=== PATIENT | female | born 1975 | race Caucasian/White ===

== ENCOUNTER → 2016-12-29 | Outpatient (CLI) | payer OTHER ==
[~2016-12-29] MED LIST: AUGMENTIN PO; CALC1CAP24 PO; CLB100 PO; CYAN100020 PO; DESOTAB2 PO; MIRA1TAB3 PO; MOME50SP5; MULT-506 PO; MULT-580 PO; OMEGCAP2 PO; PANT40TA PO; VTME100 PEG
[2016-12-29 17:29] LABS: BASO % 0.4 %; BASO ABS # 0.03 K/uL (0-0.2); COMPLETE YES; EOS % 2.2 %; IG% 0.1 %; LYMPH % 31.3 %; LYMPH ABS # 2.62 K/uL (1.2-3.4); MEAN CELL VOLUME 93.2 fL (80-100); MEAN CORPUSCULAR HEMOGLOBIN 31.7 pg (25-34); MEAN PLATELET VOLUME 10.5 fL (7.4-10.4); MONO % 6.9 %; NEUT % 59.1 %; PLATELET COUNT 304 K/uL (130-400); RED BLOOD COUNT 4.29 M/uL (4.2-5.4); WHITE BLOOD COUNT 8.37 K/uL (4.8-10.8)
[2016-12-29 17:50] LABS: ALT/SGPT 21 U/L (12-78); AST/SGOT 15 U/L (15-37); BLOOD UREA NITROGEN 11 mg/dl (7-18); BUN/CREATININE RATIO 15.4 (10-20); CALCIUM 8.8 mg/dl (8.5-10.1); CARBON DIOXIDE 26 mmol/L (21-32); CHLORIDE 108 mmol/L (98-107); CREATININE 0.73 mg/dl (0.60-1.20); GLUCOSE 84 mg/dl (70-99); SODIUM 141 mmol/L (136-145)
[2016-12-29 18:01] LABS: ALB/GLOB RATIO 0.8 (0.9-2); ALKALINE PHOSPHATASE 81 U/L (45-117); C-REACTIVE PROTEIN 0.82 mg/dl (0-0.29); RHEUMATOID FACTOR < 10.0 U/mL (0-15)
[2016-12-29 18:17] LABS: LYME DISEASE AB IGM NEG (NEG)
[2016-12-29 18:19] LABS: LYME DISEASE AB IGG NEG (NEG)
== END | disposition home or self-care (01) ==
LOC: C.LABBFT 09:35
PROVIDERS: ATTEND Physician Assistant Medical
DX: R53.83 Other fatigue (principal); M25.50 Pain in unspecified joint

== ENCOUNTER → 2017-01-05 | Outpatient (CLI) | payer OTHER | END | disposition home or self-care (01) | LOC: C.PAPS 10:47 | PROVIDERS: ATTEND Obstetrics & Gynecology | DX: Z12.4 Encounter for screening for malignant neoplasm of cervix (principal); R87.610 Atypical squamous cells of undetermined significance on cytologic smear of cervix (ASC-US); Z87.42 Personal history of other diseases of the female genital tract ==

== ENCOUNTER 2017-06-18 12:11 | Emergency (ER) | payer OTHER ==
[~2017-06-18] VITALS: Ht 152.4 cm; Wt 114.0 kg
[2017-06-18 12:15] VITALS: TEMP 36.6; Ht 152.4 cm; Wt 114.0 kg
[2017-06-18] MEDS ORDERED: ASPIRIN 324 MG CHEW PO STA (12:36)
--- NOTE | 2017-06-18 12:38 | EMERGENCY ROOM VISIT NOTE ---
History Report prepared by Durga: Daniel Adler Under the Supervision of: Dr. Tremayne Paulino M.D. First contact with patient: 12:20 Chief Complaint: CHEST PAIN Stated Complaint: CHEST PAIN, HEART BURN, PAIN DOWN L ARM DR ALEX History of Present Illness The patient is a 42 year old female who presents to the Emergency Room with complaints of intermittent chest discomfort and left arm pain that the patient has been experiencing for the past two weeks. Her pain was most severe last night, and woke her from her sleep on two occasions. She described the pain last night as a "heaviness" in the center of her chest. She also notes having difficulty breathing when the chest discomfort onsets. She also complains of pain radiating down her left arm. The patient states that she has a history of heart burn, but never to this severity or with associated arm pain. She does take medication for heartburn. The patient was referred to the ED by her primary care physician due to the pain in the left arm. PCP - Dr. Phillips - [place]. The patient has a significant family history of stroke and clotting. Source of History: patient Onset: Two weeks, worsening last night Position: chest Quality: other (Heaviness) Timing: worsening Associated Symptoms: + SOB Review of Systems See HPI for pertinent positives and negatives. A total of ten systems were reviewed and were otherwise negative. Past Medical & Surgical Medical Problems: (1) Arthritis (2) CA IN SITU CERVIX UTERI (3) Idiopathic scoliosis (4) Peptic ulcer Family History Blood clots FHx: stroke Social History Smoking Status: Former Smoker Alcohol Use: occasionally Drug Use: none Housing Status: lives with family Occupation Status: employed Current/Historical Medications Scheduled Calcium Carbonate-Vitamin D (Calcium), 1 TAB PO HS Celecoxib (Celebrex), 1 CAP PO BID Cyanocobalamin (Vitamin B12), 1,000 MCG PO HS Desogestrel & Ethinyl Estradio (Reclipsen), 1 TAB PO QAM Ferrous Sulfate (Iron), 1 TAB PO DAILY Multivitamin (Multivitamin), 1 TAB PO HS Pantoprazole (Protonix), 40 MG PO BID Tocopheryl Acet,Dl-Alpha (Vitamin E), 1 CAP PEG HS Allergies Coded Allergies: Latex (Unverified Allergy, Mild, contact dermatitis, 06/18/17) Adhesives (Verified Allergy, Unknown, contact dermatitis, 06/18/17) NO KNOWN DRUG ALLERGIES (Verified Allergy, Unknown, , 06/18/17) POLLEN (Verified Allergy, Unknown, SEASONAL ALLERGY, 06/18/17) Physical Exam Vital Signs Date Time Temp Pulse Resp B/P (MAP) Pulse Ox O2 Delivery O2 Flow Rate FiO2 06/18/17 15:30 98 18 134/74 100 Room Air 06/18/17 13:57 98 20 145/73 100 Room Air 06/18/17 12:43 106 06/18/17 12:40 100 06/18/17 12:31 98 Room Air 06/18/17 12:15 36.6 108 20 130/56 97 Room Air Physical Exam GENERAL: Awake, alert, well-appearing, in no distress HENT: Normocephalic, Atraumatic. no hemotympanum bilaterally, up sign negative bilaterally. Oropharynx unremarkable. EYES: Normal conjunctiva. Sclera non-icteric. PERRL bilaterally. EOMI bilaterally. NECK: Supple. No nuchal rigidity. FROM. No JVD. No C-spine tenderness. RESPIRATORY: Clear to auscultation. CARDIAC: Tachycardic rate, normal rhythm. Extremities warm and well perfused. Equal palpable radial pulses to the bilateral upper extremities. Equal palpable DP pulses to the bilateral lower extremities. ABDOMEN: Soft, non-distended. No tenderness to palpation. No rebound or guarding. No masses. Rovsig Negative. RECTAL: Deferred. MUSCULOSKELETAL: Chest examination reveals no tenderness. The back is symmetrical on inspection without obvious abnormality. There is no CVA tenderness to palpation. No joint edema. LOWER EXTREMITIES: Calves are equal size bilaterally and non-tender. No edema. No discoloration. NEURO: Normal sensorium. No sensory or motor deficits noted. No pronator drift. No facial droop. No dysarthria. SKIN: No rash or jaundice noted. Medical Decision & Procedures Laboratory Results 06/18/17 12:25 Red Blood Count 4.27, Mean Corpuscular Volume 91.3, Mean Corpuscular Hemoglobin 31.1, Mean Corpuscular Hemoglobin Concent 34.1, Mean Platelet Volume 9.9, Neutrophils (%) (Auto) 68.7, Lymphocytes (%) (Auto) 26.4, Monocytes (%) (Auto) 3.7, Eosinophils (%) (Auto) 0.6, Basophils (%) (Auto) 0.4, Neutrophils # (Auto) 5.50, Lymphocytes # (Auto) 2.12, Monocytes # (Auto) 0.30, Eosinophils # (Auto) 0.05, Basophils # (Auto) 0.03 06/18/17 12:25 Test 06/18/17 12:25 06/18/17 15:26 White Blood Count 8.02 K/uL (4.8-10.8) Red Blood Count 4.27 M/uL (4.2-5.4) Hemoglobin 13.3 g/dL (12.0-16.0) Hematocrit 39.0 % (37-47) Mean Corpuscular Volume 91.3 fL (80-100) Mean Corpuscular Hemoglobin 31.1 pg (25-34) Mean Corpuscular Hemoglobin Concent 34.1 g/dl (32-36) Platelet Count 331 K/uL (130-400) Mean Platelet Volume 9.9 fL (7.4-10.4) Neutrophils (%) (Auto) 68.7 % Lymphocytes (%) (Auto) 26.4 % Monocytes (%) (Auto) 3.7 % Eosinophils (%) (Auto) 0.6 % Basophils (%) (Auto) 0.4 % Neutrophils # (Auto) 5.50 K/uL (1.4-6.5) Lymphocytes # (Auto) 2.12 K/uL (1.2-3.4) Monocytes # (Auto) 0.30 K/uL (0.11-0.59) Eosinophils # (Auto) 0.05 K/uL (0-0.5) Basophils # (Auto) 0.03 K/uL (0-0.2) RDW Standard Deviation 41.9 fL (36.4-46.3) RDW Coefficient of Variation 12.6 % (11.5-14.5) Immature Granulocyte % (Auto) 0.2 % Immature Granulocyte # (Auto) 0.02 K/uL (0.00-0.02) Anion Gap 8.0 mmol/L (3-11) Est Creatinine Clear Calc Drug Dose 91.6 ml/min Estimated GFR () 88.5 Estimated GFR (Non- 76.3 BUN/Creatinine Ratio 13.6 (10-20) Calcium Level 8.7 mg/dl (8.5-10.1) Total Bilirubin 0.4 mg/dl (0.2-1) Direct Bilirubin 0.1 mg/dl (0-0.2) Aspartate Amino Transf (AST/SGOT) 15 U/L (15-37) Alanine Aminotransferase (ALT/SGPT) 18 U/L (12-78) Alkaline Phosphatase 90 U/L (45-117) Total Protein 7.1 gm/dl (6.4-8.2) Albumin 3.2 gm/dl (3.4-5.0) Lipase 173 U/L (73-393) Troponin I < 0.015 ng/ml (0-0.045) Laboratory results reviewed by me Medications Administered Medications (Trade) Dose Ordered Sig/Abigail Route Start Time Stop Time Status Last Admin Dose Admin Aspirin (Aspirin Chew) 324 mg NOW STAT PO 06/18/17 12:36 06/18/17 12:39 DC 06/18/17 12:43 324 MG Miscellaneous Medication (Gi Cocktail) 24 ml ONE STAT PO 06/18/17 12:50 06/18/17 12:51 DC 06/18/17 12:50 24 ML Lidocaine HCl (Viscous Lidocaine 2% Soln) 20 ml STK-MED ONCE .ROUTE 06/18/17 13:03 06/18/17 13:04 DC 06/18/17 13:03 20 ML Al Hydroxide/Mg Hydroxide (Maalox Susp) 30 ml STK-MED ONCE .ROUTE 06/18/17 13:03 06/18/17 13:04 DC 06/18/17 13:03 30 ML Ondansetron HCl (Zofran Inj) 4 mg NOW STAT IV 06/18/17 14:00 06/18/17 14:01 DC 06/18/17 14:02 4 MG ECG Rate (beats per minute): 103 Rhythm: normal sinus Findings: no acute ischemic change, no ectopy, other (Intervals within normal range, no ST-Elevation/Depressin) ED Course 1222: The patient was evaluated in room C12. A complete history and physical exam was performed. 1236: Aspirin 324 mg PO. 1250: Ordered GI Cocktail 24 mL PO. 1303: Ordered Maalox Susp 30 mL, Lidocaine HCl 20 mL Medical Decision 1610: Vital signs stable repeat troponin within normal limits. CTA within normal limits. Potassium replaced and emergency department. Patient states she feels better. Patient will follow up with PCP tomorrow as previously discussed. Plan of care was discussed with patient and mother who is at bedside , both are agreeable and agree with the plan. QUESTIONS answered. Return precautions discussed with patient. Impression Primary Impression: Chest pain Additional Impression: Hypokalemia Scribe Attestation The scribe's documentation has been prepared under my direction and personally reviewed by me in its entirety. I confirm that the note above accurately reflects all work, treatment, procedures, and medical decision making performed by me. The chart was completed utilizing [employer] voice recognition software. Grammatical errors, random word insertions, pronoun errors, and incomplete sentences are an occasional consequence of this system due to software limitations, ambient noise, and hardware issues. Any formal questions or concerns about the content, text, or information contained within the body of this dictation should be directly addressed to the physician for clarification. Departure Information Referrals Santana Phillips M.D. (PCP) Patient Instructions My [facility] Problem Qualifiers Primary Impression: Chest pain Chest pain type: unspecified Qualified Codes: R07.9 - Chest pain, unspecified
[2017-06-18 12:40] VITALS: O2SAT 100
[2017-06-18] MEDS ORDERED: OPTIRAY 320 IV PRN (12:45)
[2017-06-18] MEDS ORDERED: GI COCKTAIL PO STA (12:50)
[2017-06-18 12:51] LABS: BASO % 0.4 %; BASO ABS # 0.03 K/uL (0-0.2); EOS % 0.6 %; EOS ABS # 0.05 K/uL (0-0.5); HEMOGLOBIN 13.3 g/dL (12.0-16.0); IG# 0.02 K/uL (0.00-0.02); LYMPH % 26.4 %; LYMPH ABS # 2.12 K/uL (1.2-3.4); MEAN CELL VOLUME 91.3 fL (80-100); MEAN CORPUSCULAR HEMOGLOBIN 31.1 pg (25-34); MEAN CORPUSCULAR HGB CONC 34.1 g/dl (32-36); MEAN PLATELET VOLUME 9.9 fL (7.4-10.4); MONO % 3.7 %; NEUT % 68.7 %; PLATELET COUNT 331 K/uL (130-400); RED CELL DISTRIBUTION WIDTH CV 12.6 % (11.5-14.5); RED CELL DISTRIBUTION WIDTH SD 41.9 fL (36.4-46.3); WHITE BLOOD COUNT 8.02 K/uL (4.8-10.8)
[2017-06-18] MEDS ORDERED: ALUMINUM/MAGNESIUM SUSP 30 ML UDC ONE (13:03)
[2017-06-18] MEDS ORDERED: LIDOCAINE HCL 2% VISC SOLN 20 ML UDC ONE (13:03)
--- NOTE | 2017-06-18 13:05 | DIAGNOSTIC IMAGING REPORT ---
SINGLE VIEW CHEST CLINICAL HISTORY: Atypical chest pain. FINDINGS: An AP, portable, upright chest radiograph is compared to study dated 03/05/2015 and correlated with chest CT dated 11/29/2012. The examination is degraded by portable technique and patient rotation. The cardiomediastinal silhouette is unremarkable. The lungs and pleural spaces are clear. No pneumothorax is seen. The bony thorax is grossly intact. IMPRESSION: No active disease in the chest. Electronically signed by: Lj Dow M.D. 06/18/2017 1:04 PM Dictated Date/Time: 06/18/2017 1:03 PM
[2017-06-18 13:08] LABS: ALBUMIN 3.2 gm/dl (3.4-5.0); ALT/SGPT 18 U/L (12-78); AST/SGOT 15 U/L (15-37); BLOOD UREA NITROGEN 13 mg/dl (7-18); CALCIUM 8.7 mg/dl (8.5-10.1); CARBON DIOXIDE 23 mmol/L (21-32); CREATININE 0.93 mg/dl (0.60-1.20); GLUCOSE 98 mg/dl (70-99); LIPASE 173 U/L (73-393); SODIUM 136 mmol/L (136-145)
[2017-06-18] MEDS ORDERED: CALC-51 PO (13:11)
[2017-06-18] MEDS ORDERED: FERR1TAB23 PO (13:11)
[2017-06-18 13:13] LABS: ALKALINE PHOSPHATASE 90 U/L (45-117); TOTAL PROTEIN 7.1 gm/dl (6.4-8.2)
[2017-06-18] MEDS ORDERED: ONDANSETRON INJ 2 MG/ML 2 ML VIAL IV STA (14:00)
[2017-06-18] MEDS ORDERED: ONDANSETRON INJ 2 MG/ML 2 ML VIAL ONE (14:01)
--- NOTE | 2017-06-18 14:03 | DIAGNOSTIC IMAGING REPORT ---
CT ANGIOGRAPHY OF THE CHEST, PULMONARY EMBOLUS PROTOCOL CLINICAL HISTORY: Chest pain. Left arm pain. Tachycardia. COMPARISON STUDY: Chest CT November 29, 2012 and chest radiograph June 18, 2017. TECHNIQUE: Following IV administration of 90 mL of Optiray-320, helical axial images of the chest were obtained utilizing the pulmonary embolus protocol. Maximal intensity projections and sagittal and coronal reformats were viewed on an independent 3D workstation. IV contrast was administered without complication. A dose lowering technique was utilized adhering to the principles of ALARA. CT DOSE: 502.36 mGycm FINDINGS: No pulmonary emboli are identified. There is no evidence for thoracic aortic dissection. The size of the heart is normal. There is no pericardial effusion. No enlarged axillary, mediastinal or hilar lymph nodes are present. Central airways are patent. There is no consolidation to suggest pneumonia. No pneumothorax or pleural effusion is noted. There is no evidence for pulmonary edema. Bony thorax and upper abdomen are unremarkable. IMPRESSION: 1. No pulmonary emboli identified. 2. No acute intrathoracic findings. Electronically signed by: Johnny Zaragoza M.D. 06/18/2017 2:02 PM Dictated Date/Time: 06/18/2017 1:53 PM
[2017-06-18] MEDS ORDERED: POTASSIUM CHLORIDE 10 MEQ TABCR PO STA (15:37)
[2017-06-18 16:39] VITALS: BP 129/84; PULSE 100; O2SAT 99
== END 2017-06-18 16:42 | disposition home or self-care (01) ==
LOC: C.EDB 12:14 → C.EDC 16:42
DX: R07.9 Chest pain, unspecified (principal); E87.6 Hypokalemia; M19.90 Unspecified osteoarthritis, unspecified site; Z82.49 Family history of ischemic heart disease and other diseases of the circulatory system; Z82.3 Family history of stroke; Z87.891 Personal history of nicotine dependence

== ENCOUNTER → 2018-01-20 | Outpatient (CLI) | payer OTHER ==
[~2018-01-20] MED LIST changes: -AUGMENTIN PO; +CALC-51 PO; -CALC1CAP24 PO; +DESO1TAB38 PO; -DESOTAB2 PO; +FERR1TAB23 PO; -MIRA1TAB3 PO; -MOME50SP5; -MULT-580 PO; -OMEGCAP2 PO
== END | disposition home or self-care (01) ==
LOC: C.LABBFT 10:03
PROVIDERS: ATTEND Physician Assistant Medical
DX: R21 Rash and other nonspecific skin eruption (principal)

== ENCOUNTER 2024-12-16 09:18 | Observation (INO) ==
--- NOTE | 2024-11-09 14:19 | PAT Medication Instructions ---
Medication Instructions Date of Service November 09, 2024 Home Medications Medication Instructions Recorded cyclobenzaprine 10 mg tablet 10 mg PO DAILY PRN neck pain and 02/25/21 spasms. #30 tabs albuterol sulfate 90 mcg/actuation 3 inh inhalation Q6H PRN shortness 08/05/21 aerosol inhaler of breath or wheezing #18 grams epinephrine 0.3 mg/0.3 mL 0.3 mg (0.3 mL) IM Q4H PRN 12/27/21 injection, auto-injector (EpiPen anaphylaxis #2 ea 2-Redd) ipratropium 0.5 mg-albuterol 3 mg 3 ml inhalation QID PRN wheezing 05/28/22 (2.5 mg base)/3 mL nebulization #90 mL soln sucralfate 1 gram tablet 1 g PO BID PRN acid reflux #60 tabs 08/04/23 omeprazole 20 mg tablet,delayed 20 mg PO QPM #100 tabs 04/20/24 release mometasone 50 mcg/actuation nasal 1 spray intranasal QPM Allergy 04/22/24 spray Symptoms #17 grams diclofenac sodium 1 % topical gel 2 g topical QID #200 grams 07/15/24 celecoxib 200 mg capsule (Celebrex) 200 mg PO BID #180 caps 07/27/24 tirzepatide (weight loss) 5 mg/0.5 5 mg (0.5 mL) subcut Q7D #2 mL 10/19/ mL subcutaneous pen injector (Zepbound) cyanocobalamin (vitamin B-12) 1,000 mcg tablet 1,000 mcg PO QAM cyclobenzaprine 10 mg tablet 10 mg PO DAILY PRN albuterol sulfate 90 mcg/actuation aerosol inhaler 3 inh inhalation Q6H PRN epinephrine 0.3 mg/0.3 mL injection, auto-injector (EpiPen 2-Redd) 0.3 mg (0.3 mL) IM Q4H PRN pediatric multivitamin no.76 (Flintstones Complete chewable tablet) 1 tab PO DAILY cetirizine 10 mg capsule (Zyrtec) 10 mg PO DAILY PRN ipratropium 0.5 mg-albuterol 3 mg (2.5 mg base)/3 mL nebulization soln 3 ml inhalation QID PRN tretinoin 0.05 % topical cream 1 applic topical DAILY PRN sucralfate 1 gram tablet 1 g PO BID PRN omeprazole 20 mg tablet,delayed release 20 mg PO QPM mometasone 50 mcg/actuation nasal spray 1 spray intranasal QPM diclofenac sodium 1 % topical gel 2 g topical QID celecoxib 200 mg capsule (Celebrex) 200 mg PO BID tirzepatide (weight loss) 5 mg/0.5 mL subcutaneous pen injector (Zepbound) 5 mg (0.5 mL) subcut Q7D beclomethasone dipropionate 80 mcg/actuation HFA breath activated aerosol (Qvar RediHaler) 1 inh inhalation BID PRN bupropion HCl 100 mg tablet,12 hr sustained-release (Wellbutrin SR) 100 mg PO HS duloxetine 30 mg capsule,delayed release 30 mg PO HS ferrous sulfate 325 mg (65 mg iron) tablet (Iron (ferrous sulfate)) 325 mg PO DAILY STOP 7 days before surgery tirzepatide (weight loss) 5 mg/0.5 mL subcutaneous pen injector (Zepbound) 5 mg (0.5 mL) subcut Q7D Continue as directed cyclobenzaprine 10 mg tablet 10 mg PO DAILY PRN(if needed) epinephrine 0.3 mg/0.3 mL injection, auto-injector (EpiPen 2-Redd) 0.3 mg (0.3 mL) IM Q4H PRN(if needed) ASK your surgeon for instructions celecoxib 200 mg capsule (Celebrex) 200 mg PO BID STOP taking 24 hours before surgery tretinoin 0.05 % topical cream 1 applic topical DAILY PRN diclofenac sodium 1 % topical gel 2 g topical QID DO NOT take the morning of surgery cyanocobalamin (vitamin B-12) 1,000 mcg tablet 1,000 mcg PO QAM pediatric multivitamin no.76 (Flintstones Complete chewable tablet) 1 tab PO DAILY cetirizine 10 mg capsule (Zyrtec) 10 mg PO DAILY PRN sucralfate 1 gram tablet 1 g PO BID PRN ferrous sulfate 325 mg (65 mg iron) tablet (Iron (ferrous sulfate)) 325 mg PO DAILY Take morning of surgery With a small sip of water, OTHERWISE NOTHING TO EAT OR DRINK AFTER MIDNIGHT: albuterol sulfate 90 mcg/actuation aerosol inhaler 3 inh inhalation Q6H PRN(use if needed; please bring with you to hospital day of surgery if possible) ipratropium 0.5 mg-albuterol 3 mg (2.5 mg base)/3 mL nebulization soln 3 ml inhalation QID PRN(if needed) beclomethasone dipropionate 80 mcg/actuation HFA breath activated aerosol (Qvar RediHaler) 1 inh inhalation BID PRN(if needed) Take evening before surgery albuterol sulfate 90 mcg/actuation aerosol inhaler 3 inh inhalation Q6H PRN(if needed) ipratropium 0.5 mg-albuterol 3 mg (2.5 mg base)/3 mL nebulization soln 3 ml inhalation QID PRN(if needed) sucralfate 1 gram tablet 1 g PO BID PRN omeprazole 20 mg tablet,delayed release 20 mg PO QPM mometasone 50 mcg/actuation nasal spray 1 spray intranasal QPM beclomethasone dipropionate 80 mcg/actuation HFA breath activated aerosol (Qvar RediHaler) 1 inh inhalation BID PRN(if needed) bupropion HCl 100 mg tablet,12 hr sustained-release (Wellbutrin SR) 100 mg PO HS duloxetine 30 mg capsule,delayed release 30 mg PO HS Other Notes If you have any questions please call us at [phone] or [phone] or [phone] or [phone]
--- NOTE | 2024-11-14 15:47 | Anesthesiology Consultation ---
Date of Service November 14, 2024 Assessment & Plan (1) Encounter for pre-operative examination: - Check test DOS - Infectious disease screening: Per assessment on 11/14/24- No known recent infectious disease contacts or current infectious disease symptoms. - GLP-1 medication instructions: Patient informed by PAT to stop 7 days prior to surgery- voiced understanding. - Patient requests: Patient requests to wear mask (when possible) while dentures are out pre/postop. OR made aware. Chart Review Chart Review: Acceptable Risk for Surgery and Patient seen in Pre Admission Testing Teaching & Discussion Pre-Anesthesia Teaching/Discussion Notes: Instructed NPO after midnight before surgery,except medications with 15 cc of water. Medication instructions provided according to the PAT guidelines. History Surgery Operation Date: 12/16/24 12:00 Proposed Procedures p Bilateral Total Knee Arthroplasty - Luke Spring DO Height/Weight Height: 4 ft 11 in Weight: 70.3 kg Allergies Allergy/AdvReac Type Severity Reaction Status Date / Time Penicillins Allergy Intermediate N/V Verified 11/14/24 16:16 adhesive Allergy Mild Contact Verified 11/14/24 16:16 dermatitis latex Allergy Mild Contact Verified 11/14/24 16:16 dermatitis, welt at site pollen extracts Allergy Mild Seasonal Verified 11/14/24 16:16 allergy doxycycline AdvReac Severe Nausea, Verified 11/14/24 16:16 dizziness fluticasone [From Flonase] AdvReac Intermediate Burning Verified 11/14/24 16:16 sensation, sneezing rye Allergy Severe Anaphylaxis Uncoded 11/03/24 16:01 Medications Home Medications Medication Instructions Recorded Confirmed Last Taken cyanocobalamin (vitamin B-12) 1,000 mcg PO QAM 09/16/18 11/03/24 11/16/22 1,000 mcg tablet cyclobenzaprine 10 mg tablet 10 mg PO DAILY PRN neck pain and 02/25/21 11/03/24 6 Months Ago spasms. #30 tabs ~05/20/22 albuterol sulfate 90 mcg/actuation 3 inh inhalation Q6H PRN shortness 08/05/21 11/03/24 11/15/22 aerosol inhaler of breath or wheezing #18 grams epinephrine 0.3 mg/0.3 mL 0.3 mg (0.3 mL) IM Q4H PRN 12/27/21 11/03/24 Unknown injection, auto-injector (EpiPen anaphylaxis #2 ea 2-Redd) pediatric multivitamin no.76 1 tab PO DAILY 12/27/21 11/03/24 11/16/22 (Flintstones Complete chewable tablet) cetirizine 10 mg capsule (Zyrtec) 10 mg PO DAILY PRN Allergy Symptoms 04/21/22 11/03/24 2 Months Ago ~09/18/22 ipratropium 0.5 mg-albuterol 3 mg 3 ml inhalation QID PRN wheezing 05/28/22 11/03/24 06/08/22 (2.5 mg base)/3 mL nebulization #90 mL soln tretinoin 0.05 % topical cream 1 applic topical DAILY PRN Skin 11/18/22 11/03/24 2 Days Ago Cleansing ~11/16/22 sucralfate 1 gram tablet 1 g PO BID PRN acid reflux #60 tabs 08/04/23 11/03/24 Unknown omeprazole 20 mg tablet,delayed 20 mg PO QPM #100 tabs 04/20/24 11/03/24 Unknown release mometasone 50 mcg/actuation nasal 1 spray intranasal QPM Allergy 04/22/24 11/03/24 Unknown spray Symptoms #17 grams diclofenac sodium 1 % topical gel 2 g topical QID #200 grams 07/15/24 11/03/24 Unknown celecoxib 200 mg capsule (Celebrex) 200 mg PO BID #180 caps 07/27/24 11/03/24 Unknown tirzepatide (weight loss) 5 mg/0.5 5 mg (0.5 mL) subcut Q7D #2 mL 10/19/24 11/03/24 Unknown mL subcutaneous pen injector (Zepbound) beclomethasone dipropionate 80 1 inh inhalation BID PRN Wheezing 11/03/24 11/03/24 Unknown mcg/actuation HFA breath activated aerosol (Qvar RediHaler) bupropion HCl 100 mg tablet,12 hr 100 mg PO HS 11/03/24 11/03/24 Unknown sustained-release (Wellbutrin SR) duloxetine 30 mg capsule,delayed 30 mg PO HS 11/03/24 11/03/24 Unknown release ferrous sulfate 325 mg (65 mg 325 mg PO DAILY 11/03/24 11/03/24 Unknown iron) tablet (Iron (ferrous sulfate)) Past Medical History Medical History Anemia Anxiety Asthma "Seasonal"/inhaler prn Chronic pain Depression GERD (gastroesophageal reflux disease) History of COVID-19 Hx MRSA infection Most recent age early 30s (facial wound), treated Liver lesion Under surveillance Moderate dysplasia of cervix Obesity Taking weekly GLP-1 injectable for weight loss Osteoarthritis Scoliosis Exercise / Class Metabolic Activity II 4-5 Yardwork/Stairs/Walk up hill (one FS: No CP, no SOB) Past Family History Family History Mother Family history of reaction to anesthesia difficulty waking and low BP Father Family history of diabetes mellitus Family hx colonic polyps Colorectal cancer Grandfather (Maternal) Family hx colonic polyps Aunt Ovarian cancer Aunt Ovarian cancer Family/Other Ovarian cancer great grandmother Denies family history of Prostate cancer Breast cancer Past Surgical History Surgical History H/O LEEP History of anesthesia reaction Slow to wake/hypotension with bladder sling surgery & hernia surgery (also low HR with hernia surgery) History of bladder suspension procedure History of dilatation and curettage History of esophagogastroduodenoscopy (EGD) Hiatal hernia and ulcer surgery History of hernia surgery History of hysteroscopy Hysteroscopy, D&C (09/25/22): Grade view 1, MAC#3, ETT 7.0 at [facility]. No noted major complications apparant per post-op anesthesia progress note. History of tooth extraction History of wisdom tooth extraction Past Anesthesia History Other (Slow to wake/hypotension with bladder sling surgery & hernia surgery (also low HR with hernia surgery)) * Mother: slow to wake, low BP/HR postoperatively History of PONV No Hx of PONV and Hx of Motion Sickness Social History Smoking Status: Former smoker Do You Dip or Chew Tobacco: No Smoking End Date: Age 20 Hx Alcohol Use: Yes Alcohol type: hard liquor alcohol intake frequency: holidays/special occasions only Hx Substance Use: No substance use type: does not use Review of Systems Patient denies chest pain, shortness of breath, dyspnea on exertion, fever, chills, cough, wheezing, palpitations. Physical Exam Vital Signs BP 106/68 P 90 TEMP 98.2 SP02 96%RA RESP 16 Physical Full cervical extension range of motion. Full TMJ range of motion. TMD > 3.5 finger breaths Mallampati Score II Dentition: full upper denture, lower partial Lungs: clear throughout to auscultation Cardiac: regular rate and rhythm, no murmurs noted Spine: normal Carotid arteries: negative bruit Extremities: no LE edema Lab Results Anesthesia Preop Results Results Anesthesia Widget: WBC 8.28 K/ul (4.8-10.8) 11/14/24 Hgb 13.5 g/dl (12.0-16.0) 11/14/24 Hct 39.4 % (37.0-47.0) 11/14/24 Plt 286 K/uL (130-400) 11/14/24 Na 137 mmol/L (136-145) 11/14/24 K 3.3 mmol/L (3.5-5.1) L 11/14/24 Cl 105 mmol/L (98-107) 11/14/24 CO2 23 mmol/L (21-32) 11/14/24 BUN 13 mg/dl (6-23) 11/14/24 Creat 0.63 mg/dl (0.6-1.2) 11/14/24 Glucose Level 96 mg/dl (70-99(Fasting)) 11/14/24 PT 11.1 Seconds (9.0-12.0) 11/14/24 PTT 30 Seconds (21-31) 11/14/24 INR 1.0 (0.9-1.1) 11/14/24 Blood Type O Positive 11/14/24 Antibody Screen NEGATIVE 11/14/24 Testing Electrocardiogram Date: 11/14/24 NSR at 86bpm. "Normal ECG" Chest X-Ray Date: 11/14/24 IMPRESSION: 1. No active cardiopulmonary disease. 2. No gross interval change seen on comparison.
--- NOTE | 2024-12-15 14:27 | History & Physical Report ---
Date of Service December 15, 2024 Assessment & Plan (1) Osteoarthritis of left knee: We will proceed with bilateral total knee arthroplasties. Postoperatively, she will be started on aspirin for DVT prophylaxis and kept overnight in the hospital for postop medical management. She plans to use energy physical the rapy upon discharge. (2) Osteoarthritis of right knee: History of Present Illness Chief Complaint: Osteoarthritis bilateral knees. Primary Care Provider: GUILLERMO Matamoros Margo is a pleasant 49-year-old female who has been dealing with chronic increasing bilateral knee pain. X-rays and clinical exam have been diagnostic for worsening osteoarthritis of both knees. She has been treating it conservatively for the last 3 years. She has had multiple injections. Unfortunately, she cannot continue to live with the knees the way they are. They are severely affecting her quality of life. After failed conservative treatment, she has elected to proceed with bilateral total knee arthroplasties. Allergies Allergy/AdvReac Type Severity Reaction Status Date / Time Penicillins Allergy Intermediate N/V Verified 12/02/24 14:10 adhesive Allergy Mild Contact Verified 12/02/24 14:10 dermatitis latex Allergy Mild Contact Verified 12/02/24 14:10 dermatitis, welt at site pollen extracts Allergy Mild Seasonal Verified 12/02/24 14:10 allergy doxycycline AdvReac Severe Nausea, Verified 12/02/24 14:10 dizziness fluticasone [From Flonase] AdvReac Intermediate Burning Verified 12/02/24 14:10 sensation, sneezing rye Allergy Severe Anaphylaxis Uncoded 12/02/24 14:10 Home Medications Medication Instructions Recorded Confirmed Type cyanocobalamin (vitamin B-12) 1,000 mcg PO QAM 09/16/18 12/02/24 History 1,000 mcg tablet cyclobenzaprine 10 mg tablet 10 mg PO DAILY PRN neck pain and 02/25/21 12/02/24 Rx spasms. #30 tabs albuterol sulfate 90 mcg/actuation 3 inh inhalation Q6H PRN shortness 08/05/21 12/02/24 Rx aerosol inhaler of breath or wheezing #18 grams epinephrine 0.3 mg/0.3 mL 0.3 mg (0.3 mL) IM Q4H PRN 12/27/21 12/02/24 Rx injection, auto-injector (EpiPen anaphylaxis #2 ea 2-Redd) pediatric multivitamin no.76 1 tab PO DAILY 12/27/21 12/02/24 History (Flintstones Complete chewable tablet) cetirizine 10 mg capsule (Zyrtec) 10 mg PO DAILY PRN Allergy Symptoms 04/21/22 12/02/24 History ipratropium 0.5 mg-albuterol 3 mg 3 ml inhalation QID PRN wheezing 05/28/22 12/02/24 Rx (2.5 mg base)/3 mL nebulization #90 mL soln tretinoin 0.05 % topical cream 1 applic topical DAILY PRN Skin 11/18/22 12/02/24 History Cleansing sucralfate 1 gram tablet 1 g PO BID PRN acid reflux #60 tabs 08/04/23 12/02/24 Rx omeprazole 20 mg tablet,delayed 20 mg PO QPM #100 tabs 04/20/24 12/02/24 Rx release diclofenac sodium 1 % topical gel 2 g topical QID #200 grams 07/15/24 12/02/24 Rx celecoxib 200 mg capsule (Celebrex) 200 mg PO BID #180 caps 07/27/24 12/02/24 Rx tirzepatide (weight loss) 5 mg/0.5 5 mg (0.5 mL) subcut Q7D #2 mL 10/19/24 12/02/24 Rx mL subcutaneous pen injector (Zepbound) beclomethasone dipropionate 80 1 inh inhalation BID PRN Wheezing 11/03/24 History mcg/actuation HFA breath activated aerosol (Qvar RediHaler) duloxetine 30 mg capsule,delayed 30 mg PO HS 11/03/24 12/02/24 History release ferrous sulfate 325 mg (65 mg 325 mg PO DAILY 11/03/24 12/02/24 History iron) tablet (Iron (ferrous sulfate)) mometasone 50 mcg/actuation nasal 1 spray intranasal QPM Allergy 11/24/24 12/02/24 Rx spray Symptoms #17 grams Past Med/Surg History Problem List Obesity Chronic pain Other obesity due to excess calories Patellofemoral disorders, right knee Arthralgia of multiple joints Secondary amenorrhea Internal derangement of knee Muscle strain of foot Liver lesion Abnormal ultrasound of uterus Abnormal uterine bleeding (AUB) Osteoarthritis of left knee Osteoarthritis of right knee Medial meniscus tear Acne cystica GERD (gastroesophageal reflux disease) Anxiety (Acute) Asthma (Acute) Depression (Acute) Disc degeneration, lumbar (Acute) Polyarthritis, inflammatory (Acute) Urge and stress incontinence (Acute) Idiopathic scoliosis (Chronic 11/29/12) Medical History Hx MRSA infection Most recent age early 30s (facial wound), treated Obesity Taking weekly GLP-1 injectable for weight loss Anemia GERD (gastroesophageal reflux disease) Depression Scoliosis Chronic pain Liver lesion Under surveillance History of COVID-19 Osteoarthritis Moderate dysplasia of cervix Anxiety Asthma "Seasonal"/inhaler prn Surgical History History of anesthesia reaction Slow to wake/hypotension with bladder sling surgery & hernia surgery (also low HR with hernia surgery) History of dilatation and curettage History of hysteroscopy Hysteroscopy, D&C (09/25/22): Grade view 1, MAC#3, ETT 7.0 at [facility]. No noted major complications apparant per post-op anesthesia progress note. History of hernia surgery H/O LEEP History of bladder suspension procedure History of esophagogastroduodenoscopy (EGD) Hiatal hernia and ulcer surgery History of tooth extraction History of wisdom tooth extraction Family History Mother Family history of reaction to anesthesia difficulty waking and low BP Father Family history of diabetes mellitus Family hx colonic polyps Colorectal cancer Grandfather (Maternal) Family hx colonic polyps Aunt Ovarian cancer Aunt Ovarian cancer Family/Other Ovarian cancer great grandmother Denies family history of Prostate cancer Breast cancer Social History Smoking Status: Former smoker Tobacco Type: Cigarettes Age Started Using Tobacco: 14; Age Quit Using Tobacco: 19; packs per day: 0.5; Smoking End Date: Age 20; Second Hand Exposure: No; Do You Dip or Chew Tobacco: No; Tobacco Cessation Education Requested by Patient: No Hx Alcohol Use: Yes Alcohol type: hard liquor Hx Substance Use: No Preferred Language: Zambian Communication Ability: Effective Homoeopath Required: No Beliefs That Will Affect Care: None marital status: Single Current Living Situation: Family Current Living Situation Comment: Lives with children current occupational status: employed Other Information That Helps Us Care for You: No Feels Safe at Home: Yes Safety Concerns: Feels Safe At This Time Diet: regular caffeine: Yes Dental Care, Regularly: No Physical Activity Frequency: Does not Exercise Seatbelt Use: always Sunscreen Use: Yes Assistive Devices: Denture - Upper, Denture - Lower and Glasses Review of Systems All systems reviewed & are unremarkable except as noted in HPI & below. Physical Exam On physical examination of both knees, she has slight varus deformity. Tenderness palpation over the distal medial femoral condyles and over the medial joint line.. Constitutional WD/WN, vitals as above Eyes PERRL, conjunctivae normal, anicteric sclerae ENMT external ear and nose normal, oropharynx normal Neck trachea midline, no thyromegaly Respiratory normal respiratory effort Cardiovascular RRR, no murmur, no edema Gastrointestinal (Abdomen) normal bowel sounds, soft, nontender, no hepatosplenomegaly Psychiatric A+Ox3, euthymic affect Results & Data Results & Data Laboratory Results . Diagnostic Findings X-rays of both knees show advanced osteoarthritis with joint space narrowing, osteophyte formation, and [id number] articulation.. PG Care Time/CCT Total # of Minutes Spent Total Time Spent with Patient: Total time spent is greater than 50% in coordination of care (as documented) at patient's floor/unit and/or counseling patient: Coding Level of Care Code None Diagnoses Osteoarthritis of left knee M17.12 Osteoarthritis of right knee M17.11
[~2024-12-16 09:18] MED LIST changes: -CALC-51 PO; -CLB100 PO; -CYAN100020 PO; -DESO1TAB38 PO; -FERR1TAB23 PO; -MULT-506 PO; -PANT40TA PO; +ROPIVACAINE 0.5% 5 MG/ML 30 ML VIAL ONE; +SODIUM CHLORIDE 0.9% PF INJ 10 ML VIAL ONE; -VTME100 PEG
[2024-12-16] MEDS ORDERED: MIDAZOLAM HCL 1 MG/ML 2ML VIAL ONE ×2 (09:21→10:02)
[2024-12-16] MEDS: LR 500ML BOLUS, THEN 15ML/HR IV SCH (09:58)
[2024-12-16] MEDS: LR 60ML/HR IV SCH (09:58)
--- NOTE | 2024-12-16 09:59 | History & Physical Bridge Note ---
Date of Service December 16, 2024 History & Physical Bridge Note I have examined the patient, reviewed the History & Physical and in the interval since the performance of the History & Physical I have noted the following changes of clinical significance: no changes noted
[2024-12-16] MEDS: GABAPENTIN 900 MG DOSE PO SCH (10:00)
[2024-12-16] MEDS: FAMOTIDINE 20 MG TAB PO SCH (10:01)
[2024-12-16] MEDS: ACETAMINOPHEN 500 MG TAB PO SCH ×2 (10:01→16:01)
[2024-12-16] MEDS: dexAMETHasone**PF** 10 MG/ML VIAL IV SCH (10:10)
[2024-12-16] MEDS ORDERED: PROMETHAZINE HCL 6.25 MG in SODIUM CHLORIDE 0.9% 50 ML IV PRN (10:25)
[2024-12-16] MEDS: CITRIC ACID/SODIUM CITRATE 15 ML UDC PO STA (10:25)
[2024-12-16] MEDS ORDERED: ATROPINE SULFATE 0.1 MG/ML 10ML SYR IV PRN (10:25)
[2024-12-16] MEDS ORDERED: HYDROmorphone INJ 1 MG/ML SYRINGE IV PRN (10:25)
[2024-12-16] MEDS: TRANEXAMIC ACID 1,000 MG **IV Pre-op IV SCH (10:40)
[2024-12-16] MEDS ORDERED: ONDANSETRON INJ 2 MG/ML 2 ML VIAL ONE (11:16)
[2024-12-16] MEDS ORDERED: PROPOFOL IV EMULSION 10 MG/ML 20 ML VIAL IV ONE ×2 (11:16→12:14)
[2024-12-16] MEDS ORDERED: DexMEDEtomidine HCL IV 100 MCG/ML VIAL IV ONE (11:22)
[2024-12-16] MEDS ORDERED: SUCCINYLCHOLINE 100MG/5ML SYR IV ONE (12:14)
[2024-12-16] MEDS: ROPIV 0.5% 246mg, Ketorolac 30mg, EPINEPHrine 0.5mg in NSS INFIL SCH (12:19)
[2024-12-16] MEDS: ORTHO JOINT ANESTHETIC ONE (12:20)
[2024-12-16] MEDS ORDERED: ROCURONIUM BROMIDE 10 MG/ML 5 ML VIAL IV ONE (12:22)
[2024-12-16] MEDS ORDERED: PHENYLEPHRINE 100MCG/ML 5ML SYR ONE (12:26)
[2024-12-16] MEDS ORDERED: SUGAMMADEX SODIUM 200 MG/2 ML VIAL IV ONE (12:44)
--- NOTE | 2024-12-16 13:35 | Operative Report ---
PG Post Operative Report Pre & Post Diagnosis Operation Date: 12/16/24 11:00 Pre-Op Diagnosis: Ostearthritis Bilateral Knees Post-Op Diagnosis: Osteoarthritis Bilateral Knees I identified the patient and participated in the time-out.: Yes Procedure Operation Date: 12/16/24 11:00 Actual Procedures p Bilateral Total Knee Arthroplasty(Bilateral) - Luke Spring DO Surgeon Luke Spring DO Whizzer Operator Rory Spangler PA-C Estimated Blood Loss 60 Findings Consistent with Post-Op Diagnosis Specimens Bilateral femoral and tibial bone Description of Procedure [place] arrived [facility] for the above procedure. She was seen in the preoperative holding area and both knees were identified and signed. She was given a preoperative antibiotic, TXA, a spinal anesthetic and adductor nerve blocks. She was taken back to the operating room and laid on the table in supine position. She was given basic sedation. However, during the case she was having a little bit of difficulty with her oxygen saturations and she was put under general anesthesia. Both knees were then prepped and draped in sterile fashion. A timeout was done, and the patient and the operative extremities were properly identified. Right knee implants used: I used a Talisha Persona total knee arthroplasty system with a size 4 narrow femur, C tibia, 28 oval patella, and a size 12 CPS polyethylene bearing. All components were cemented in place with Palacos G cement. A midline incision was made directly over the patella. Dissection was taken down to the extensor mechanism. A medial parapatellar arthrotomy was used. The medial retinaculum was released and the fat pad was mostly excised. The knee was flexed and the ACL, PCL, and meniscus were removed. A drill was sent down the center of the femoral canal followed by an intramedullary debbie. Off that debbie a distal femoral cutting block was placed. 9 mm was resected off the distal femur at 5 of valgus. A posterior referencing AP sizing guide was then placed on the distal femur. The femur measured to be a size 4. 2 drill holes were placed in 3 of external rotation. A 4-in-1 cutting block was then impacted into place. Anterior, posterior, and chamfer cuts were then made. The proximal tibia was then exposed. An external tibial alignment guide was placed. A tibial cut guide was then anchored in place and the proximal tibia was then resected. The posterior aspect of the knee was then opened up and any additional meniscus fragments and osteophytes were removed. The tibia measured to be a size C. The tibial plate was then placed in the appropriate rotation and the tibia was drilled and punched. Trial components were then placed. I used a size 12 CPS polyethylene insert. The knee was brought through a full range of motion and felt to be stable. The peg holes for the femur were then drilled. The patella was then everted and 9 mm was resected off the posterior aspect of the patella. The patella measured to be a size 28 oval. 3 peg holes were then drilled. A trial patella was placed. The knee was once again brought through a full range of motion and felt to be stable. Trial components were then removed. The surrounding soft tissues were injected with 50 cc of an orthopedic pain control cocktail. All components were then cemented into place with Palacos G cement. The final polyethylene insert was then snapped into place. Once cement was dry the tourniquet was deflated. Hemostasis was obtained. A dilute betadyne lavage was then done for 3 minutes. The joint was then irrigated with normal saline solution. The medial parapatellar arthrotomy was then closed with #1 Vicryl suture. The skin was maryse sed with 2-0 Vicryl, 3-0V lock suture, and blu. A Silverlon and a soft compressive dressing were placed. Left knee implants used: I used a Talisha Persona total knee arthroplasty system with a size 4 narrow femur, C tibia, 25 oval patella, and a size 12 CPS polyethylene bearing. All components were cemented in place with Palacos G cement. A midline incision was made directly over the patella. Dissection was taken down to the extensor mechanism. A medial parapatellar arthrotomy was used. The medial retinaculum was released and the fat pad was mostly excised. The knee was flexed and the ACL, PCL, and meniscus were removed. A drill was sent down the center of the femoral canal followed by an intramedullary debbie. Off that debbie a distal femoral cutting block was placed. 9 mm was resected off the distal femur at 5 of valgus. A posterior referencing AP sizing guide was then placed on the distal femur. The femur measured to be a size 4. 2 drill holes were placed in 3 of external rotation. A 4-in-1 cutting block was then impacted into place. Anterior, posterior, and chamfer cuts were then made. The proximal tibia was then exposed. An external tibial alignment guide was placed. A tibial cut guide was then anchored in place and the proximal tibia was resected. The posterior aspect of the knee was then opened up and any additional meniscus fragments and osteophytes were removed. The tibia measured to be a size C. The tibial plate was then placed in the appropriate rotation and the tibia was drilled and punched. Trial components were then placed. I used a size 12 CPS polyethylene insert. The knee was brought through a full range of motion and felt to be stable. The peg holes for the femur were then drilled. The patella was then everted and 9 mm was resected off the posterior aspect of the patella. The patella measured to be a size 25 oval. 3 peg holes were then drilled. A trial patella was placed. The knee was once ag ain brought through a full range of motion and felt to be stable. Trial components were then removed. The surrounding soft tissues were injected with 50 cc of an orthopedic pain control cocktail. All components were then cemented into place with Palacos G cement. The final polyethylene insert was then snapped into place. Once cement was dry the tourniquet was deflated. Hemostasis was obtained. A dilute betadyne lavage was then done for 3 minutes. The joint was then irrigated with normal saline solution. The medial parapatellar arthrotomy was then closed with #1 Vicryl suture. The skin was closed with 2-0 Vicryl, 3-0V lock suture, and blu. A Silverlon and a soft compressive dressing were placed. Munira was then transferred to a hospital bed and taken to the postanesthesia care unit in stable condition. She tolerated the procedure well. Rory Spangler PA-C, was present for the entire procedure. He was critical for patient positioning, prepping, draping, retraction exposure, wound closure and application of sterile dressing. I attest to the content of the Intraoperative Record and any orders documented therein. Any exceptions are noted below.
--- NOTE | 2024-12-16 13:52 | XRay Report ---
XR knee RT 1 or 2V routine CLINICAL HISTORY: Postoperative evaluation. COMPARISON: Right knee radiographs September 27, 2024. FINDINGS: Alignment of the total right knee arthroplasty is anatomic. There is no periprosthetic fra cture or unexpected radiopaque foreign body. IMPRESSION: Expected findings following total right knee arthroplasty. ACT 112: Negative or not required by law. Electronically signed by: Johnny Zaragoza M.D. 12/16/2024 1:51 PM
--- NOTE | 2024-12-16 14:06 | XRay Report ---
TWO VIEWS LEFT KNEE CLINICAL HISTORY: Postoperative examination. FINDINGS: AP and crosstable lateral portable views of the left knee are compared to study 12/31/2022. A left knee arthroplasty is in near anatomic alignment. There has been undersurface remodeling of the patella. No acute fracture is seen. There are expected postoperative changes around the knee includi ng soft tissue edema and subcutaneous gas. IMPRESSION: Expected postoperative changes status post left knee arthroplasty. No acute fracture is s een. ACT 112: Negative or not required by law. Electronically signed by: Lj Dow M.D. 12/16/2024 2:04 PM
--- NOTE | 2024-12-16 14:18 | Anesthesiology Progress Note ---
Date of Service December 16, 2024 Anesthesia Post Procedure Vital Signs Vital Signs: Temp Pulse Pulse Resp BP Pulse Ox O2 Del Method 12/16/24 14:00 89 18 107/65 97 Nasal Cannula 12/16/24 13:50 36.4 C L 92 H 19 108/68 98 Nasal Cannula 12/16/24 13:40 100 H 20 89/65 L 98 Oxymask 12/16/24 13:30 36.3 C L 97 H 18 90/62 L 98 Oxymask 12/16/24 09:42 36.9 C 87 18 111/82 98 Room Air O2 Flow Rate 12/16/24 14:00 2 12/16/24 13:50 2 12/16/24 13:40 5 12/16/24 13:30 5 12/16/24 09:42 Pain Intensity Bilateral Knee: Pain Intensity: 6 Bilateral Hand: Pain Intensity: 4 Transfer of Care Handoff Completed per policy Notes Mental Status: alert / awake / arousable Patient Amnestic to Procedure: Yes Nausea / Vomiting: adequately controlled Pain: adequately controlled Airway Patency, RR, SpO2: stable & adequate BP & HR: stable & adequate Hydration State: stable & adequate Neuraxial Anesthesia: was administered and sensory block is resolving Anesthetic Complications: no major complications apparent
[2024-12-16] MEDS ORDERED: ONDANSETRON INJ 2 MG/ML 2 ML VIAL IV PRN (14:51)
[2024-12-16] MEDS ORDERED: MAGNESIUM HYDROXIDE SUSP 30 ML UDC PO PRN (14:51)
[2024-12-16] MEDS ORDERED: METOCLOPRAMIDE HCL INJ 5 MG/ML 2 ML VIAL IV PRN (14:51)
[2024-12-16] MEDS ORDERED: NALOXONE HCL 0.4 MG/1 ML VIAL/CARP IV PRN (14:51)
[2024-12-16] MEDS: KETOROLAC TROMETHAMINE 15 MG/ML VIAL IV SCH (16:03)
[2024-12-16] MEDS: SODIUM CHLORIDE 0.9% 1,000 ML IV SCH (16:07)
[2024-12-16] MEDS: CITRIC ACID/SODIUM CITRATE 15 ML UDC ONE (16:25)
[2024-12-16] MEDS: ASPIRIN 81 MG ECTAB PO SCH (20:20)
[2024-12-16] MEDS: DOCUSATE SODIUM 100 MG CAP PO SCH (20:20)
[2024-12-16] MEDS: SENNA 8.6 MG TAB PO SCH (20:22)
[2024-12-17] MEDS: HYDROmorphone INJ 0.5 MG/0.5 ML SYR IV PRN (03:27)
[2024-12-17 07:47] VITALS: TEMP 98.2
--- NOTE | 2024-12-17 08:21 | Orthopedic Progress Note ---
Date of Service December 17, 2024 Assessment & Plan (1) Status post bilateral knee replacements: Overall she is doing fairly well. She is not having much pain in her knees. She has been up and ambulating to the bathroom. She is on aspirin for DVT prophylaxis. She will be seen by physical therapy today for ambulation and range of motion exercises. The nursing staff can remove the Steven wrap and leave the Silverlon after physical therapy. She can be discharged to home later today. She will follow-up with orthopedics in 2 weeks. Elsi Aragon was seen and examined at bedside this morning. Overall she is doing very well. She is not having too much pain in her knees. She has been up and ambulating to the bathroom. She has no complaints.. Review of Systems All systems reviewed & are unremarkable except as noted in HPI & below. Physical Exam On physical exam of both knees, the dressings are clean and dry. Her legs are on full extension. She has active dorsiflexion plantarflexion of her ankles.. Results & Data Results & Data Laboratory Results . Diagnostic Findings Postoperative x-rays of both knees show the prosthesis to be in anatomic alignment without any evidence of fracture, dislocation, or loosening.. PG Care Time/CCT Total # of Minutes Spent Total Time Spent with Patient: Total time spent is greater than 50% in coordination of care (as documented) at patient's floor/unit and/or counseling patient: Coding Level of Care Code 06633 Post Operative Follow-Up Diagnoses Status post bilateral knee replacements Z96.653
[2024-12-17] MEDS: MULTIVITAMIN TAB PO SCH (08:34)
[2024-12-17 11:27] VITALS: BP 108/67; PULSE 82; RESP 16; O2SAT 97
== END 2024-12-17 13:42 | disposition home or self-care (01) ==
LOC: 3E 09:18 → ASU 09:18